=== PATIENT | female | born 1995 | race Caucasian/White ===

== ENCOUNTER 2016-09-04 16:23 | Emergency (ER) | payer OTHER ==
[2016-09-04 16:28] VITALS: BP 115/78; PULSE 74; RESP 16; TEMP 98.1; O2SAT 98
[2016-09-04] MEDS ORDERED: SKIN ADHESIVE (DERMABOND) 1 EACH TP ONE (17:16)
--- NOTE | 2016-09-04 17:18 | EDPHY ---
H & P Time Seen by Provider: 09/04/16 16:51 HPI/ROS: CHIEF COMPLAINT: right middle finger laceration HISTORY OF PRESENT ILLNESS: 20-year-old female presents with a laceration to her right middle finger from cleaning scissors today. Patient is unsure of tetanus status and is refusing an update today. She denies numbness or tingling to this hand, she is [id number], denies other injuries. Smoking Status: Current some day smoker Physical Exam: GEN: Awake, alert, oriented, no acute distress RESP: nl resp effort MSK: Full flexion and extension against resistance DIP joint to right middle finger, 2 point discrimination intact, cap refill less than 2 seconds SKIN: 0.5 cm horizontal laceration just distal to the DIP joint of right middle finger palmar aspect, no tendon visualized. Constitutional: Initial Vital Signs Temperature (C) 36.7 C 09/04/16 16:25 Heart Rate 74 09/04/16 16:25 Respiratory Rate 16 09/04/16 16:25 Blood Pressure 115/78 09/04/16 16:25 O2 Sat (%) 98 09/04/16 16:25 O2 Delivery Mode Room Air Allergies/Adverse Reactions: No Known Allergies Allergy (Unverified 09/04/16 16:28) Home Medications: Medication Instructions Recorded NK [No Known Home Meds] 09/04/16 MDM/Departure - MDM Procedures: Procedure: Laceration repair. Verbal consent was obtained from the patient. The 0.5 cm laceration on the right middle finger was anesthetized using 1% lidocaine without epinephrine digital block. The wound was carefully irrigated by the emergency department it help desk technician. Next, the wound was prepped and draped in sterile fashion and explored to its base with a gloved finger. There were no deep structures involved. No tendon injury was identified. No vascular injury was identified. No foreign bodies were identified. The wound was repaired with glue. The wound repair was simple. The procedure was performed by myself. Tetanus and antibiotic status were addressed. - Depart Disposition: Home, Routine, Self-Care Clinical Impression: Laceration of right middle finger Condition: Good Instructions: Finger Laceration (ED), Skin Adhesive Care (ED) Additional Instructions: Keep dressing on for 36 hours, then you may remove and wash with soap and water , keep splint on for 5 days, do not use antibiotic ointment. Return to the emergency department for any signs of infection, fevers, chills, red streaks, pain, worsening symptoms.
== END 2016-09-04 17:22 | disposition home or self-care (01) ==
PROC: 0HQFXZZ Repair Right Hand Skin, External Approach (ICD-10-PCS; principal; 2016-09-04)
DX: S61.212A Laceration without foreign body of right middle finger without damage to nail, initial encounter (principal); F17.200 Nicotine dependence, unspecified, uncomplicated; W26.8XXA Contact with other sharp object(s), not elsewhere classified, initial encounter; Y93.89 Activity, other specified